=== PATIENT | male | born 1975 | race Caucasian/White ===

== ENCOUNTER 2020-01-01 18:38 | Emergency (ER) | payer SELFPAY ==
--- NOTE | 2020-01-01 19:05 | PDOC ---
Rapid Medical Evaluation Time Seen by Provider: 01/01/20 19:01 Medical Evaluation: Allergies Allergy/AdvReac Type Severity Reaction Status Date / Time No Known Allergies Allergy Verified 01/01/20 19:02 01/01/20 19:02 Pt comes in with R arm pain after lifting a heavy mattress. He states he felt a pop and now he is having R arm pain. Pt is R handed Exam: pop-eye defect to the R upper arm Orders: x-ray Pt to proceed to the ER for further evaluation Discharge Disposition - Diagnosis Arm pain Qualifiers: Laterality: right Qualified Code(s): M79.601 - Pain in right arm - Referrals - Patient Instructions - Post Discharge Activity
[2020-01-01 19:08] VITALS: BP 170/105; PULSE 60; TEMP 98.9; BMI 29.1
--- NOTE | 2020-01-01 19:49 | PDOC ---
History of Present Illness - General Chief Complaint: Injury Stated Complaint: RIGHT HAND PAIN Time Seen by Provider: 01/01/20 19:01 - History of Present Illness Initial Comments: 01/01/20 19:47 44-year-old male no comorbidities presents for evaluation of right shoulder pain. Patient was lifting a mattress felt a pop in his right shoulder he comes in for evaluation no prior problems with the right shoulder Past History - Medical History Allergies/Adverse Reactions: Allergies Allergy/AdvReac Type Severity Reaction Status Date / Time No Known Allergies Allergy Verified 01/01/20 19:02 - Psycho-Social/Smoking History Smoking History: Never smoked Have you smoked in the past 12 months: No - Substance Abuse Hx (Audit-C & DAST Scrn) How often the patient has a drink containing alcohol: Monthly or less Number of drinks the patient has on a typical day: 1 or 2 How often the patient has six or more drinks on one occasion: Never Score: In Men: 4 or > Positive; In Women: 3 or > Positive: 1 Screen Result (Pos requires Nsg. Audit-10AR): Negative In the last yr the pt used illegal drug/Rx for NonMed reason: No Score: Yes response is considered Positive: 0 Screen Result (Positive result requires Nsg. DAST-10): Negative Review of Systems - Review of Systems Musculoskeletal: Yes: Joint Pain *Physical Exam - Vital Signs Last Vital Signs Temp Pulse Resp BP Pulse Ox 98.9 F 60 16 170/105 H 98 01/01/20 19:02 01/01/20 19:02 01/01/20 19:02 01/01/20 19:02 01/01/20 19:02 - Physical Exam 01/01/20 19:47 Right upper extremity has a bicep deformity full range of motion of the elbow and forearm no gross sensorimotor deficits neurovascular intact. Medical Decision Making - Medical Decision Making 01/01/20 19:47 X-ray show no fracture trauma or destructive process. Right proximal bicep tendon tear. Follow-up with Ortho no emergent intervention required. I have reviewed the pathophysiology with the patient. They are in agreement with the treatment plan all questions were answered to their satisfaction. Understanding for follow-up without fail was also conveyed to the patient. Again they are in agreement. Discharge - Discharge Information Problems reviewed: Yes Clinical Impression/Diagnosis: Biceps tendon rupture, proximal Arm pain Qualifiers: Laterality: right Qualified Code(s): M79.601 - Pain in right arm Condition: Stable Disposition: HOME - Admission No - Follow up/Referral Referrals: Kartik Jackson DO [Staff Physician] - - Patient Discharge Instructions Additional Instructions: Tylenol Motrin as directed for pain and return to the emergency room should you have further issues. Without fail follow-up with orthopedic surgery in 2 to 3 days for further evaluation and treatment options. - Post Discharge Activity
== END 2020-01-01 20:05 | disposition home or self-care (01) ==
LOC: JER 18:38 → JERFT 18:38
DX: M79.601 Pain in right arm (principal)
CPT/HCPCS: 73030-TC-RT-FY; 73070-TC-RT-FY; 99284-25